=== PATIENT | male | born 1960 | race Caucasian/White ===

== ENCOUNTER 2020-12-06 13:26 | Emergency (ER) | payer OTHER ==
[~2020-12-06] VITALS: Ht 172.7 cm; Wt 68.0 kg
--- NOTE | 2020-12-06 13:50 | NUR ---
BIB [facility] FROM HOME,ABDOMINAL PAIN X 1 MONTH,WORSE X 1 WEEK. BLOOD SUGAR 202 IN THE FIELD. PATIENT A/OX4, BREATHING EVEN AND UNLABORED. 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
--- NOTE | 2020-12-06 14:35 | NUR ---
UA SENT TO LAB.
[2020-12-06] MEDS ORDERED: HYDROMORPHONE 1 MG/1 ML DISP.SYRIN ONE (15:00)
[2020-12-06] MEDS ORDERED: ONDANSETRON HCL/PF 4 MG/2 ML VIAL ONE (15:00)
[2020-12-06] MEDS ORDERED: IV NS 0.9% 1,000 ML IV ONE (15:00)
[2020-12-06] MEDS ORDERED: HYDROMORPHONE 1 MG/1 ML DISP.SYRIN IV ONE (15:00)
[2020-12-06] MEDS ORDERED: ONDANSETRON HCL/PF - ER 4 MG/2 ML VIAL IV ONE (15:00)
[2020-12-06] MEDS ORDERED: IOHEXOL-350 100 ML VIAL IV ONE ×2 (15:01→15:55)
[2020-12-06] MEDS ORDERED: IV NS 0.9% 250 ML IV ONE ×2 (15:01→15:55)
--- NOTE | 2020-12-06 15:11 | NUR ---
IV LINE ESTABLISHED, BLOOD DRAWN AND SENT TO LAB.
[2020-12-06 15:37] LABS: BASOPHILS % (AUTO) 0.4 % (0.0-2.0); HEMATOCRIT 43 % (39-51); LYMPHOCYTES # (AUTO) 2.4 /CMM (0.8-4.8); LYMPHOCYTES % (AUTO) 23.6 % (20.0-44.0); MEAN CORPUSCULAR HGB CONC 35 g/dl (31.0-36.0); MEAN CORPUSCULAR VOLUME 86 fL (80-96); MONOCYTES # (AUTO) 0.9 /CMM (0.1-1.30); MONOCYTES % (AUTO) 8.9 % (2.0-12.0); NEUTROPHILS # (AUTO) 6.6 /CMM (1.8-8.9); NEUTROPHILS % (AUTO) 65.1 % (43.0-81.0); PLATELET COUNT (AUTO) 309 /CMM (150-450); RED BLOOD CELL COUNT(AUTO) 5.02 MIL/uL (4.5-6.0); WHITE BLOOD COUNT (AUTO) 10.1 K/uL (4.3-11.0)
[2020-12-06 15:48] LABS: CALCIUM, SERUM 10.2 mg/dL (8.5-10.1); CARBON DIOXIDE 27 mmol/L (21-32); CHLORIDE 99 mmol/L (98-107); CREATININE 0.6 mg/dL (0.6-1.3); GLUCOSE 153 mg/dL (74-106); POTASSIUM 3.7 mmol/L (3.5-5.1); SODIUM SERUM 135 mmol/L (136-145); UREA NITROGEN, BLOOD 14 mg/dL (7-18)
[2020-12-06] MEDS ORDERED: CT SWABBABLE VALVE TRANS SET 1 EA INFUS.SET MC ONE (15:55)
[2020-12-06] MEDS ORDERED: ALOG25TA2 PO (16:34)
[2020-12-06] MEDS ORDERED: MORP30TA59 PO (16:34)
[2020-12-06] MEDS ORDERED: ASPI-1169 PO (16:34)
[2020-12-06] MEDS ORDERED: MULT-188 PO (16:34)
[2020-12-06] MEDS ORDERED: HYDR-4303 PO (16:34)
[2020-12-06] MEDS ORDERED: ENZA80TA PO (16:34)
[2020-12-06] MEDS ORDERED: HYDR28.316 RC (16:34)
[2020-12-06] MEDS ORDERED: DIPH25CA83 PO (16:34)
[2020-12-06] MEDS ORDERED: PRED20TA PO (16:34)
[2020-12-06] MEDS ORDERED: OXYC-128 PO (16:34)
[2020-12-06] MEDS ORDERED: HYDR-500 PO (16:34)
--- NOTE | 2020-12-06 18:05 | NUR ---
2ND TROPONIN IN PROCESS
--- NOTE | 2020-12-06 18:45 | NUR ---
PATIENT A/OX4, NO SOB NOTED, DENIES PAIN AT THIS TIME. IV removed. Catheter intact and site benign. Pressure and 4x4 applied to site. No bleeding noted.Patient discharged to home in stable condition. Written and verbal after care instructions given. Patient verbalizes understanding of instruction. SPOKE TO FAMILY ON THE PHONE WHILE PATIENT BEING DISCHARGED. WAITING FOR FAMILY TO PICK HIM UP.
[2020-12-06 19:16] VITALS: BP 116/56
== END 2020-12-06 19:21 | disposition home or self-care (01) ==
LOC: ER 13:48
DX: R07.9 Chest pain, unspecified (principal); C34.92 Malignant neoplasm of unspecified part of left bronchus or lung; C34.91 Malignant neoplasm of unspecified part of right bronchus or lung; C79.51 Secondary malignant neoplasm of bone; R94.31 Abnormal electrocardiogram [ECG] [EKG]; Z20.822 Contact with and (suspected) exposure to COVID-19; I11.0 Hypertensive heart disease with heart failure; I50.9 Heart failure, unspecified; G89.4 Chronic pain syndrome; E11.9 Type 2 diabetes mellitus without complications; Z79.899 Other long term (current) drug therapy
CPT/HCPCS: 36415; 71045; 71275; 80048; 84484 ×2; 85025; 87081; 87426; 93005 ×2; 96361; 96374; 96375; 99285; C9803; J1170; J2405; J7030; J7050 ×2; Q9967